=== PATIENT | female | born 1980 | race Caucasian/White ===

== ENCOUNTER 2017-11-04 14:27 | Emergency (ER) | payer MEDICAID ==
[~2017-11-04] VITALS: Ht 170.2 cm; Wt 70.3 kg
[2017-11-04 14:33] VITALS: BP 135/80
--- NOTE | 2017-11-04 14:45 | NUR ---
PATIENT IS A 37 YO FEMALE BIB [facility] FOR PREBOOK EXAM. SHE IA AWAKE AND ALERT, CONFUSED, VERY HYPER VERBAL. NO ACUTE DISTRESS NOTED.
--- NOTE | 2017-11-04 15:06 | NUR ---
LABS DRAWN UA PENDING.
[2017-11-04 15:16] LABS: HEMATOCRIT 28.5 % (36-48); HEMOGLOBIN 8.8 g/dL (12.0-16.0); MEAN CORPUSCULAR HEMOGLOBIN 21 pg (27-31); MEAN CORPUSCULAR HGB CONC 31 g/dL (33-37); MEAN CORPUSCULAR VOLUME 67.2 fL (80-94); PLATELET COUNT (AUTO) 272 K/uL (140-450); RED BLOOD CELL COUNT(AUTO) 4.24 MIL/uL (4.20-5.40); RED CELL DISTRIBUTION WIDTH 20.5 % (11.6-13.7); WHITE BLOOD COUNT (AUTO) 10.6 K/uL (4.8-10.8)
[2017-11-04 15:36] LABS: LYMPHOCYTES % (MANUAL) 22 % (20-46); METAMYELOCYTES % 1 % (0-0); MONOCYTES % (MANUAL) 4 % (5-12); PROMYELOCYTES % 1 % (0-0)
[2017-11-04 15:42] LABS: ANION GAP 14.3 (8-16); CARBON DIOXIDE 26.6 mmol/L (21-32); CHLORIDE 101 mmol/L (98-107); CREATININE 0.9 mg/dL (0.6-1.3); GFR ARICAN-AMERICAN 92 mL/min (>90); GLUCOSE 95 mg/dL (74-106); POTASSIUM 3.9 mmol/L (3.5-5.1); SODIUM SERUM 138 mmol/L (136-145); UREA NITROGEN, BLOOD 10 mg/dL (7-18)
[2017-11-04 15:46] LABS: APPEARANCE,URINE HAZY (CLEAR); BILIRUBIN,URINE NEGATIVE (NEGATIVE); BLOOD, URINE 1+ (NEGATIVE); COLOR,URINE YELLOW (YELLOW); LEUKOCYTE ESTERASE ,URINE NEGATIVE (NEGATIVE); NITRITE, URINE NEGATIVE (NEGATIVE); PH,URINE 6.5 (5.0-9.0); UGLUCOSE NEGATIVE (NEGATIVE)
[2017-11-04 15:51] LABS: BARBITURATE, URINE NEG. ng/ml (NEG <=200); BENZODIAZEPINE, URINE NEG. ng/mL (NEG <=200); CANNABINOID, URINE POS. ng/mL (NEG <=50); COCAINE, URINE NEG. ng/mL (NEG <=300); OPIATE, URINE NEG. ng/mL (NEG <=2000); PHENCYCLIDINE SCREEN,URINE NEG. ng/mL (NEG <=25)
[2017-11-04 15:53] LABS: ASPARTATE AMINOTRANSFERASE 42 U/L (15-37); TOTAL BILIRUBIN 0.4 mg/dL (0.0-1.0)
[2017-11-04 15:57] LABS: ACETAMINOPHEN < 0.5 ug/ml (10-30)
[2017-11-04 16:01] LABS: RBC,URINE 3-10 (FEW) /HPF (0-5)
[2017-11-04 16:01] LABS: SALICYLATE 4.3 mg/dL (2.8-20.0)
[2017-11-04 16:02] LABS: WBC,URINE 0-5 (RARE) /HPF (0-5)
[2017-11-04 16:11] VITALS: BP 135/80
--- NOTE | 2017-11-04 16:12 | NUR ---
Patient discharged with v/s stable. Written and verbal after care instructions given and explained. Patient verbalized understanding. Police with in custody. All questions addressed prior to discharge. Advised to follow up with PMD.
== END 2017-11-04 16:12 | disposition home or self-care (01) ==
LOC: MED 14:27
DX: Z02.89 Encounter for other administrative examinations (principal); D64.9 Anemia, unspecified; F15.10 Other stimulant abuse, uncomplicated; F32.9 Major depressive disorder, single episode, unspecified
CPT/HCPCS: 36415; 80053; 80305; 81001; 81025; 82550; 82553; 85025; 99284; G0480; G0482